=== PATIENT | male | born 1945 | race African-American/Black ===

== ENCOUNTER 2020-11-21 08:59 | Day surgery (SDC) | payer OTHER ==
[2020-11-17 11:07] VITALS: BMI 37.6
[2020-11-21 11:45] VITALS: TEMP 98.2
[2020-11-21 13:18] VITALS: BP 110/54; PULSE 92
== END 2020-11-21 12:30 | disposition home or self-care (01) ==
LOC: FASU-ENDO 08:59
PROVIDERS: ATTEND Internal Medicine Gastroenterology
PROC: 0DJD8ZZ Inspection of Lower Intestinal Tract, Via Natural or Artificial Opening Endoscopic (ICD-10-PCS; principal; 2020-11-21 11:13)
DX: Z12.11 Encounter for screening for malignant neoplasm of colon (principal); Z86.010 Personal history of colon polyps